=== PATIENT | male | born 1955 | race American Indian/Alaskan Native ===

== ENCOUNTER 2020-05-10 08:41 | Day surgery (SDC) | payer MEDICARE ==
[~2020-05-10 08:41] MED LIST: MIDAZOLAM 2 MG/2 ML INJ IV NR; SODIUM CHLORIDE 0.9% 1000 ML 1,000 ML IV SCH; ceFAZolin/Water 2 GM/20 ML 2 GM/20 ML SYRINGE IV NR; fentaNYL 100 MCG/2 ML INJ IV PRN
--- NOTE | 2020-05-10 09:49 | Anesthesia Consultation ---
Anesthesia Consult and Med Hx Date of service: 05/10/20 - Airway Anesthetic Teeth Evaluation: Edentulous ROM Head & Neck: Adequate Mental/Hyoid Distance: Adequate Mallampati Class: Class III Intubation Access Assessment: Possibly Difficult - Pulmonary Exam CTA: Yes - Cardiac Exam Cardiac Exam: RRR - Pre-Operative Health Status ASA Pre-Surgery Classification: ASA3 Proposed Anesthetic Plan: General - Pulmonary Hx Smoking: Yes Hx Respiratory Symptoms: No - Cardiovascular System Hx Hypertension: Yes Hx Coronary Artery Disease: Yes (took carvedilol this morning) Hx Heart Attack/AMI: Yes (>4yrs ago; normal EF on TTE 03/2019, >4mets exercise tolerance) Hx Percutaneous Transluminal Coronary Angioplasty (PTCA): No Hx Cardia Arrhythmia: No (sinus jocelin on EKG 03/2020) Hx Valvular Heart Disease: No - Central Nervous System Hx Seizures: No (noted in chart but patient denies. No AEDs on med list.) CVA: Yes (x3; residual gait abnormality) - Endocrine Hx Renal Disease: Yes (CKD 5 not yet on HD) Hx Liver Disease: No Hx Insulin Dependent Diabetes: No Hx Non-Insulin Dependent Diabetes: No Hx Thyroid Disease: No - Other Systems Hx Obesity: No - Additional Comments Anesthesia Medical History Comments: No prior anesthetics. Reports stable 4 pillow orthopnea for many years but no signs/symptoms decompensation on exam. Cardiology visit note, TTE, and EKG on chart.
[2020-05-10] MEDS ORDERED: fentaNYL 100 MCG/2 ML INJ IV PRN (09:50)
--- NOTE | 2020-05-10 09:50 | Anesthesia Day of Surgery ---
Anesthesia Day of Surgery - Day of Surgery Patient Examined: Yes Patient H&P Reviewed: Yes Patient is NPO: Yes Beta Blockers: Yes (carvedilol today AM)
[2020-05-10] MEDS ORDERED: rifAMPin 600 MG VIAL ONE (09:57)
[2020-05-10] MEDS ORDERED: SODIUM CHLORIDE 0.45% 500 ML IV ONE (09:57)
[2020-05-10] MEDS ORDERED: HEPARIN 10,000 UNITS/10 ML VIAL ONE (09:57)
[2020-05-10] MEDS ORDERED: SODIUM CHLORIDE P/F VIAL 10 ML 10 ML ONE (09:57)
[2020-05-10] MEDS ORDERED: BUPIVACAINE/PF (0.5%) 5 MG/1 ML 30 ML VIAL INFILTRATI ONE ×3 (09:57→12:30)
[2020-05-10] MEDS ORDERED: LIDOCAINE (1%) 10 MG/1 ML VIAL 20 ML MDV ONE (09:57)
[2020-05-10] MEDS ORDERED: SODIUM CHLORIDE 0.9% 500 ML 500 ML ONE (09:58)
[2020-05-10] MEDS ORDERED: HYDROmorphone 1 MG/1 ML INJ ONE (10:16)
[2020-05-10] MEDS ORDERED: LIDOCAINE MPF (2%) 20 MG/1 ML VIAL 5 ML ONE (10:17)
[2020-05-10] MEDS ORDERED: propofoL 200 MG/20 ML VIAL IV ONE (10:17)
[2020-05-10 10:24] LABS: Hematocrit 37.8 % (35.5-45.6); Hemoglobin 12.6 gm/dl (11.8-15.2); Mean Corpuscular HGB Conc 33 % (32-34); Mean Corpuscular Volume 79 fl (84-94); Platelet Count 190 K/mm3 (140-440); Red Blood Count 4.76 M/mm3 (3.65-5.03); Red Cell Distribution Width 17.1 % (13.2-15.2)
[2020-05-10 11:03] LABS: Calcium 8.9 mg/dL (8.4-10.2)
[2020-05-10] MEDS ORDERED: SODIUM CHLORIDE 0.9% 500 ML IVPB IV ONE ×2 (12:31→12:36)
[2020-05-10] MEDS ORDERED: HEPARIN 10,000 UNITS/10 ML VIAL IV ONE ×2 (12:31→12:35)
[2020-05-10] MEDS ORDERED: rifAMPin 600 MG VIAL IV ONE (12:32)
[2020-05-10] MEDS ORDERED: SODIUM CHLORIDE 0.9% P/F 10 ML VIAL IV ONE (12:34)
[2020-05-10] MEDS ORDERED: ePHEDrine SULFATE 50 MG/1 ML INJ ONE (12:35)
[2020-05-10] MEDS ORDERED: GLYCOPYRROLATE 0.4 MG/2 ML INJ ONE (13:14)
--- NOTE | 2020-05-10 13:18 | Short Stay Summary ---
Short Stay Documentation Date of service: 05/10/20 Narrative H&P: See H&P - History H&P: obtained from office - Allergies and Medications Current Medications: Allergies No Known Allergies Allergy (Unverified 12/05/15 06:12) Home Medications Medication Instructions Recorded Confirmed Last Taken Type Pravastatin [Pravachol] 40 mg PO DAILY #30 tablet 12/09/15 05/10/20 05/09/20 12:00 Rx Nifedipine 90 mg PO DAILY 05/03/20 05/10/20 05/09/20 12:00 History Nitroglycerin 1 dose SL PRN PRN 05/03/20 05/03/20 Unknown History carvediloL [Coreg] 3.2 mg PO BID 05/03/20 05/10/20 05/10/20 05:00 History hydrALAZINE [Apresoline TAB] 100 mg PO TID 05/03/20 05/10/20 05/09/20 12:00 History Active Medications Fentanyl (Sublimaze) 50 mcg IV Q5MIN PRN PRN Reason: Pain , Severe (7-10) Stop: 05/10/20 23:00 Sodium Chloride (Nacl 0.9% 1000 Ml) 1,000 mls @ 42 mls/hr IV DIRECT JESICA Stop: 05/10/20 23:59 Last Admin: 05/10/20 10:50 Dose: 42 mls/hr Documented by: Cefazolin Sodium (Ancef/Sterile Water 2 Gm/20 Ml) 2 gm in 20 mls @ 80 mls/hr IV PREOP NR; Protocol Stop: 05/10/20 20:00 Midazolam HCl (Versed) 2 mg IV PREOP NR Stop: 05/10/20 23:59 Last Admin: 05/10/20 11:10 Dose: 2 mg Documented by: - Brief post op/procedure progress note Date of procedure: 05/10/20 Pre-op diagnosis: Chronic Renal Insufficiency Post-op diagnosis: same Procedure: Creation of Left Brachial Artery to Axillary Vein Arteriovenous Graft With 6 mm Bovine Artegraft Anesthesia: TRINH Surgeon: RINKU ISAAC Estimated blood loss: minimal Pathology: none Condition: stable - Disposition Condition at discharge: Good Disposition: DC-01 TO HOME OR SELFCARE Short Stay Discharge Plan Activity: other (No heavy lifting with left arm for 2 weeks.) Wound: open to air, keep clean and dry, other (Okay to wash the wound with soap and water but do not soak in water for 2 weeks.) Follow up with: RINKU ISAAC MD [Staff Physician] - 14 Days Prescriptions: HYDROcodone/APAP 7.5-325 [[place] 7.5/325] 1 each PO Q6HR PRN #40 tablet PRN Reason: Pain
--- NOTE | 2020-05-10 13:21 | Operative Report ---
Operative Report Operative Report: Date of procedure: 05/10/2020 Pre-operative diagnosis: Chronic Renal Insufficiency Post-operative diagnosis: Same Procedure(s): 1. Creation of Left Brachial Artery to Axillary Vein AV Graft with 6 mm Bovine Graft Artergraft Surgeon: Dylan Lawrence MD In Store Demonstrator: None Anesthesia: General Endotracheal Anesthesia EBL: Minimal Counts: Correct Complications: None Condition: Stable Findings: Successful Creation of Left Arm AV Graft Specimen: None Indication: The patient is a 65-year-old male with a history of chronic renal sufficiency who was not yet on hemodialysis however it is anticipated that he will require hemodialysis within the next several months. He is in need of long-term dialysis access to avoid permacath insertion. He had a vein mapping and is not a candidate for creation of an arteriovenous fistula. He was therefore set up for creation of an arteriovenous graft. He was given the risk, benefits, and alternative procedures and consented to the procedure. Description of Procedure: The patient was brought to the operating room and laid in supine position after general endotracheal anesthesia was achieved the left arm was prepped and draped in normal sterile fashion. A longitudinal incision was made on the medial aspect of the arm just proximal to the antecubital crease and carried down to the brachial artery using sharp dissection. The brachial artery was dissected out circumferentially both proximally and distally and controlled with vessel loops. A second incision was created in longitudinal fashion on the medial aspect of the arm just distal to the axillary crease and carried down to the axillary vein using sharp dissection. Axillary vein was dissected out circumferentially and controlled with a vessel loop. I then used a Tiny-Wick tunneler to tunnel from the brachial artery incision to the axillary vein incision and then put an [] mm bovine through the tunnel. I infused with heparinized saline to ensure that it was not twisted or kinked. I put the brachial artery vessel loops on tension controlling the flow and then created an arteriotomy using an 11 blade and Grimes scissors. I beveled the graft and created an end-to-side anastomosis using 6-0 Prolene running fashion. I clamped the graft just proximal to the anastomosis and then released the vessel loops restoring flow in the brachial artery. I placed quick clot in incision to achieve hemostasis. I cut the proximal end of the graft to the appropriate length and beveled the graft in preparation for a venous anastomosis. I controlled the axillary vein a Satinsky clamp and created a venotomy using an 11 blade and Grimes scissors. I created an end to side anastomosis using a 6-0 Prolene in running fashion. Prior to completing the anastomosis I flushed the graft to ensure there was no thrombus and then completed the anastamosis. I released all clamps allowing flow into the AV graft which had an excellent thrill. I packed the wound with quick clot to achieve hemostasis. I anesthetized both wounds with 0.5% Marcaine and then closed both wounds in 2 layers using 3-0 Vicryl in running fashion in the deep dermal layer and 4-0 Monocryl in running fashion the subcuticular layer. I dressed both wounds with Dermabond. The patient tolerated the procedure well all sponge needle and instrument counts were correct the patient was taken to recovery in stable condition.
[2020-05-10 14:52] VITALS: BP 149/95
--- NOTE | 2020-05-10 16:07 | Post Anesthesia Evaluation ---
- Post Anesthesia Evaluation Patient Participated: Yes Airway Patent: Yes Stable Respiratory Function: Yes Nausea/Vomiting: No Temp > 96.8F: Yes Pain Manageable: Yes Adequeate Hydration: Yes Anesthesia Complications: No
== END 2020-05-10 15:25 | disposition home or self-care (01) ==
LOC: OR 08:41
PROVIDERS: ATTEND Surgery Vascular Surgery
DX: I13.2 Hypertensive heart and chronic kidney disease with heart failure and with stage 5 chronic kidney disease, or end stage renal disease (principal); N18.6 End stage renal disease; I50.9 Heart failure, unspecified; F17.210 Nicotine dependence, cigarettes, uncomplicated; E78.5 Hyperlipidemia, unspecified; I25.2 Old myocardial infarction; I25.10 Atherosclerotic heart disease of native coronary artery without angina pectoris; J44.9 Chronic obstructive pulmonary disease, unspecified; K21.9 Gastro-esophageal reflux disease without esophagitis; Z98.890 Other specified postprocedural states; Z79.899 Other long term (current) drug therapy; Z86.73 Personal history of transient ischemic attack (TIA), and cerebral infarction without residual deficits
CPT/HCPCS: 36415; 36830; 80048; 85027; C1768; J0690; J1170; J1644; J2250; J2704; J3490; J7030; J7040

== ENCOUNTER 2020-05-22 20:24 | Observation (INO) | payer MEDICARE ==
[2020-05-22] MEDS ORDERED: ALUM-MAG HYDROXIDE-SIMETHICONE 200-200-20MG/5ML ORAL LIQD 30 ML PO ONE (20:59)
[2020-05-22] MEDS ORDERED: LIDOCAINE VISCOUS 2% 15 ML ORAL LIQD PO ONE (20:59)
--- NOTE | 2020-05-22 21:04 | Emergency Department Report ---
ED Chest Pain HPI - General Chief Complaint: Chest Pain Stated Complaint: CHEST PAIN Time Seen by Provider: 05/22/20 20:39 Source: patient, EMS Mode of arrival: Stretcher Limitations: No Limitations - History of Present Illness Initial Comments: This is a 65-year-old male presents to the emergency department via EMS from home with a complaint of midsternal chest pain that started about 8 AM this morning and has been going on since. It is currently 8 out of 10 in intensity and the patient describes it as feeling as if he has indigestion. It is nonr adiating. There is some mild shortness of breath. He denies any fever, nausea, vomiting, back pain, lower extremity swelling, diaphoresis. Patient was given 324 mg of aspirin in route. The patient also says that he has been "popping Tums all day." He has a past medical history of hypertension, hyperlipidemia, previous subdural hematoma, chronic kidney disease. The patient had a left upper extremity graft placed about 12 days ago for dialysis, but the patient is not currently undergoing dialysis. Patient also recently was admitted to [facility] for similar chest pain and says that he had a negative stress test during that stay. He follows with [facility]. His hydroponics grower is Dr. Savage. Severity scale (0 -10): 8 - Related Data Home Medications Medication Instructions Recorded Confirmed Last Taken Nifedipine 90 mg PO DAILY 05/03/20 05/22/20 05/09/20 12:00 Nitroglycerin 1 dose SL PRN PRN 05/03/20 05/22/20 Unknown carvediloL [Coreg] 3.2 mg PO BID 05/03/20 05/22/20 05/10/20 05:00 hydrALAZINE [Apresoline TAB] 100 mg PO TID 05/03/20 05/22/20 05/09/20 12:00 Previous Rx's Medication Instructions Recorded Last Taken Type HYDROcodone/APAP 7.5-325 [[place] 1 each PO Q6HR PRN #40 tablet 05/10/20 Unknown Rx 7.5/325] Allergies Allergy/AdvReac Type Severity Reaction Status Date / Time No Known Allergies Allergy Unverified 12/05/15 06:12 Heart Score - HEART Score History: Slightly suspicious EKG: Normal Age: > 65 Risk factors: > 3 risk factors or hx of atherosclerotic disease Troponin: 1-3x normal limit HEART Score: 5 - Critical Actions Critical Actions: 4-6 pts:12-16.6% risk of adverse cardiac event. Should be admitted ED Review of Systems ROS: Stated complaint: CHEST PAIN Other details as noted in HPI Comment: All other systems reviewed and negative Constitutional: denies: chills, fever Eyes: denies: eye pain, vision change ENT: denies: ear pain, throat pain Respiratory: denies: cough, shortness of breath Cardiovascular: chest pain. denies: palpitations Gastrointestinal: denies: abdominal pain, vomiting Genitourinary: denies: dysuria, discharge Musculoskeletal: denies: back pain, arthralgia Skin: denies: rash, lesions Neurological: denies: headache, weakness ED Past Medical Hx - Past Medical History Previous Medical History?: Yes Hx Hypertension: Yes Hx CVA: Yes Hx Heart Attack/AMI: Yes (>4yrs ago; normal EF on TTE 03/2019, >4mets exercise tolerance) Hx Congestive Heart Failure: Yes Hx Diabetes: No Hx Deep Vein Thrombosis: No Hx GERD: Yes Hx Liver Disease: No Hx Renal Disease: Yes (CKD 5 not yet on HD) Hx Sickle Cell Disease: No Hx Arthritis: No Hx Headaches / Migraines: No Hx Seizures: No (noted in chart but patient denies. No AEDs on med list.) Hx Kidney Stones: No Hx Asthma: No Hx COPD: Yes Hx Tuberculosis: No Hx HIV: No - Surgical History Past Surgical History?: Yes Hx Coronary Stent: No Hx Pacemaker: No Hx Internal Defibrillator: No Additional Surgical History: left arm for future dialysis use - Social History Smoking Status: Current Every Day Smoker Substance Use Type: None - Medications Home Medications: Home Medications Medication Instructions Recorded Confirmed Last Taken Type Nifedipine 90 mg PO DAILY 05/03/20 05/22/20 05/09/20 12:00 History Nitroglycerin 1 dose SL PRN PRN 05/03/20 05/22/20 Unknown History carvediloL [Coreg] 3.2 mg PO BID 05/03/20 05/22/20 05/10/20 05:00 History hydrALAZINE [Apresoline TAB] 100 mg PO TID 05/03/20 05/22/20 05/09/20 12:00 History HYDROcodone/APAP 7.5-325 [[place] 1 each PO Q6HR PRN #40 tablet 05/10/20 05/22/20 Unknown Rx 7.5/325] ED Physical Exam - General Limitations: No Limitations - Other Other exam information: GENERAL: The patient is well-developed well-nourished. HENT: Normocephalic. Atraumatic. Patient has moist mucous membranes. EYES: Extraocular motions are intact. NECK: Supple. Trachea is midline. CHEST/LUNGS: Clear to auscultation. There is no respiratory distress noted. Chest pain is not reproducible to palpation of the chest wall. HEART/CARDIOVASCULAR: Regular. There is no tachycardia. There is no murmur. ABDOMEN: Abdomen is soft, nontender. No guarding. Patient has normal bowel sounds. There is no abdominal distention. SKIN: Skin is warm and dry. NEURO: The patient is awake, alert, and oriented. The patient is cooperative. The patient has no focal neurologic deficits. Normal speech. MUSCULOSKELETAL: There is no tenderness or deformity. ED Course Vital Signs 05/22/20 05/22/20 05/22/20 20:40 21:00 21:43 Temperature 98.2 F Pulse Rate 71 82 Respiratory 23 18 17 Rate Blood Pressure 149/73 Blood Pressure 149/73 [Right] O2 Sat by Pulse 98 Oximetry 05/22/20 22:00 Temperature Pulse Rate 77 Respiratory 25 H Rate Blood Pressure 146/98 Blood Pressure [Right] O2 Sat by Pulse 94 Oximetry YOON score - Yoon Score Age > 65: (1) Yes Aspirin use within the Past 7 Days: (1) Yes 3 or more CAD Risk Factors: (1) Yes 2 or more Angina events in past 24 hrs: (1) Yes Known CAD with more than 50% Stenosis: (0) No Elevated Cardiac Markers: (1) Yes ST Deviation Greater than 0.5mm: (0) No YOON Score: 5 ED Medical Decision Making - Lab Data Result diagrams: 05/22/20 21:12 05/22/20 21:12 - EKG Data -: EKG Interpreted by Me EKG shows normal: sinus rhythm, axis, intervals, QRS complexes, ST-T waves Rate: normal - EKG Data When compared to previous EKG there are: previous EKG unavailable Interpretation: normal EKG - Radiology Data Radiology results: image reviewed interpreted by me: Chest x-ray does not show any acute process. There are no pleural effusions, obvious pneumonia and there is no pneumothorax. - Medical Decision Making Patient presents with midsternal chest pain that is been going on since about 8 AM this morning. While patient describes it as a feeling of indigestion, he has had no relief from the Tums he took at home, nor the GI cocktail given here. Patient was then given some morphine. He was also given Zofran after one episode of vomiting. EKG does not have any morphology consistent with ST elevation myocardial infarction. Chest x-ray does not show pneumonia, pleural effusions, pneumothorax, or any other acute process. The patient's labs shows acute on chronic renal deficiency with a GFR of 19. He also has an elevated troponin of 0.096. All the patient supposedly had a negative stress test recently at [facility], he does present with a moderate heart and YOON score and continued chest pain despite multiple treatment modalities. He will be admitted to the hospital for further evaluation and treatment and was accepted for admission by the hospitalist, Dr. Whitfield. Critical Care Time: No Critical care attestation.: If time is entered above; I have spent that time in minutes in the direct care of this critically ill patient, excluding procedure time. ED Disposition Clinical Impression: Acute chest pain, Elevated troponin Acute on chronic kidney failure Qualifiers: Acute renal failure type: unspecified Chronic kidney disease stage: stage 4 (severe) Qualified Code(s): N17.9 - Acute kidney failure, unspecified; N18.4 - Chronic kidney disease, stage 4 (severe) Disposition: OP ADMIT IP TO THIS HOSP Is pt being admited?: Yes Condition: Fair Time of Disposition: 22:29
--- NOTE | 2020-05-22 21:29 | XRay Report ---
CHEST 1 VIEW 05/22/2020 9:02 PM INDICATION / CLINICAL INFORMATION: CP. COMPARISON: None available. FINDINGS: SUPPORT DEVICES: None. HEART / MEDIASTINUM: No significant abnormality. LUNGS / PLEURA: No significant pulmonary or pleural abnormality. No pneumothorax. ADDITIONAL FINDINGS: No significant additional findings. IMPRESSION: No acute cardiopulmonary abnormality. Signer Name: Joe Fry MD Signed: 05/22/2020 9:25 PM Workstation Name: [employer] [id number]
[2020-05-22] MEDS ORDERED: MORPHINE 4 MG/1 ML INJ IV ONE (21:41)
[2020-05-22] MEDS ORDERED: ONDANSETRON 4 MG/2 ML INJ ONE (21:47)
[2020-05-22 21:49] LABS: Basophils % (Auto) 0.4 % (0.0-1.8); Eosinophils # (Auto) 0.2 K/mm3 (0.0-0.4); Eosinophils % (Auto) 1.5 % (0.0-4.3); Hematocrit 35.9 % (35.5-45.6); Hemoglobin 11.6 gm/dl (11.8-15.2); Lymphocytes % (Auto) 10.1 % (13.4-35.0); Mean Corpuscular HGB Conc 32 % (32-34); Mean Corpuscular Volume 82 fl (84-94); Monocytes # (Auto) 0.5 K/mm3 (0.0-0.8); Monocytes % (Auto) 4.9 % (0.0-7.3); Platelet Count 206 K/mm3 (140-440); Red Blood Count 4.36 M/mm3 (3.65-5.03); Red Cell Distribution Width 16.8 % (13.2-15.2)
[2020-05-22] MEDS ORDERED: ONDANSETRON 4 MG/2 ML INJ IV ONE (21:49)
[2020-05-22 21:51] LABS: Calcium 10.7 mg/dL (8.4-10.2)
[2020-05-22 21:55] LABS: Albumin 4.4 g/dL (3.9-5); Calcium 10.8 mg/dL (8.4-10.2)
[2020-05-22 22:01] LABS: INR 1.05 (0.87-1.13)
[2020-05-22 22:18] VITALS: BP 146/98
[2020-05-22] MEDS ORDERED: NITROGLYCERIN 0.4 MG TAB SUBL SL PRN (22:37)
[2020-05-22] MEDS ORDERED: MORPHINE 4 MG/1 ML INJ IV PRN (22:37)
[2020-05-22] MEDS ORDERED: MAGNESIUM HYDROXIDE (MOM) ORAL LIQD UDC PO PRN (22:37)
[2020-05-22] MEDS ORDERED: ACETAMINOPHEN 325 MG TAB PO PRN ×2 (22:37)
[2020-05-22] MEDS ORDERED: ONDANSETRON 4 MG/2 ML INJ IV PRN (22:37)
--- NOTE | 2020-05-22 22:47 | History and Physical Report ---
History of Present Illness Date of examination: 05/22/20 Date of admission: 05/22/2020 Chief complaint: CHEST PAIN History of present illness: 65-year-old male with known history of coronary artery disease, hypertension, CHF and GERD presenting to the emergency room today complaining of midsternal chest pain which started earlier this morning. Chest pain is said to be about 8/10 in severity. It is nonradiating. There is no no relieving or exacerbating factor. Patient had an episode of nausea or vomiting, no fever or chills, denies any headache or dizziness and denies any diaphoresis. Patient has had some aspirin en route. to the hospital. Patient had a left upper extremity graft placement about 12 days ago for possible future dialysis. He also indicates that he was admitted to [facility] for chest pain recently had a negative stress test. Patient states that he follows up with [facility] cardiology. Work-up in the emergency room today reveals a slightly elevated troponin. His BUN and creatinine was also slightly elevated from baseline. Patient is being admitted for evaluation of his chest pain. Past History Past Medical History: CAD, COPD, GERD, heart failure, hypertension, renal fa ilure (chronic) Past Surgical History: Other (left AV graft- for possible future dialysis) Social history: smoking (Current daily smoker) Family history: no significant family history Medications and Allergies Allergies Allergy/AdvReac Type Severity Reaction Status Date / Time No Known Allergies Allergy Unverified 12/05/15 06:12 Home Medications Medication Instructions Recorded Confirmed Last Taken Type Nifedipine 90 mg PO DAILY 05/03/20 05/22/20 05/09/20 12:00 History Nitroglycerin 1 dose SL PRN PRN 05/03/20 05/22/20 Unknown History carvediloL [Coreg] 3.2 mg PO BID 05/03/20 05/22/20 05/10/20 05:00 History hydrALAZINE [Apresoline TAB] 100 mg PO TID 05/03/20 05/22/20 05/09/20 12:00 History HYDROcodone/APAP 7.5-325 [[place] 1 each PO Q6HR PRN #40 tablet 05/10/20 05/22/20 Unknown Rx 7.5/325] Active Meds: Active Medications Acetaminophen (Tylenol) 650 mg PO Q6H PRN PRN Reason: Pain, Mild (1-3) Acetaminophen (Tylenol) 650 mg PO Q4H PRN PRN Reason: Pain MILD(1-3)/Fever >100.5/JUAREZ Aspirin (Ecotrin) 325 mg PO QDAY JESICA Heparin Sodium (Porcine) (Heparin) 5,000 unit SUB-Q Q8HR JESICA Magnesium Hydroxide (Milk Of Magnesia) 30 ml PO Q4H PRN PRN Reason: Constipation Morphine Sulfate (Morphine) 2 mg IV Q5MIN PRN PRN Reason: Chest Pain Nitroglycerin (Nitrostat) 0.4 mg SL Q5M PRN PRN Reason: Chest Pain Ondansetron HCl (Zofran) 4 mg IV Q8H PRN PRN Reason: Nausea And Vomiting Sodium Chloride (Sodium Chloride Flush Syringe 10 Ml) 10 ml IV PRN PRN PRN Reason: LINE FLUSH Sodium Chloride (Sodium Chloride Flush Syringe 10 Ml) 10 ml IV BID JESICA Sodium Chloride (Sodium Chloride Flush Syringe 10 Ml) 10 ml IV PRN PRN PRN Reason: LINE FLUSH Review of Systems Constitutional: no fever, no chills, no sweats Ears, nose, mouth and throat: no nasal congestion, no sore throat Cardiovascular: chest pain, no palpitations Respiratory: no cough, no shortness of breath Gastrointestinal: nausea, vomiting, no abdominal pain, no diarrhea Genitourinary Male: no dysuria, no hematuria, no flank pain Musculoskeletal: no neck pain, no low back pain Integumentary: no rash, no pruritis Neurological: no headaches, no confusion Psychiatric: no anxiety, no depression Exam - Constitutional Vitals: Temp Pulse Resp BP Pulse Ox 98.2 F 77 25 H 146/98 94 05/22/20 20:40 05/22/20 22:00 05/22/20 22:00 05/22/20 22:00 05/22/20 22:00 General appearance: Present: no acute distress, well-nourished - EENT Eyes: Present: PERRL, EOM intact. Absent: scleral icterus ENT: hearing intact, clear oral mucosa, dentition normal - Neck Neck: Present: supple, normal ROM - Respiratory Respiratory effort: normal Respiratory: bilateral: CTA - Cardiovascular Rhythm: regular Heart Sounds: Present: S1 & S2. Absent: gallop, systolic murmur, diastolic murmur, rub - Extremities Extremities: no ischemia, pulses intact, pulses symmetrical, No edema, Full ROM Peripheral Pulses: within normal limits - Abdominal General gastrointestinal: Present: soft, non-tender, non-distended, normal bowel sounds. Absent: mass - Integumentary Integumentary: Present: clear, warm, dry. Absent: rash - Musculoskeletal Musculoskeletal: strength equal bilaterally - Psychiatric Psychiatric: appropriate mood/affect, intact judgment & insight, memory intact, cooperative - Neurologic Neurologic: CNII-XII intact, no focal deficits, moves all extremities HEART Score - HEART Score History: Moderately suspicious EKG: Normal Age: > 65 Risk factors: > 3 risk factors or hx of atherosclerotic disease Troponin: Troponin T 0.096 ng/mL (0.00-0.029) H 05/22/20 21:12 Troponin: 1-3x normal limit HEART Score: 6 - Critical Actions Critical Actions: 4-6 pts:12-16.6% risk of adverse cardiac event. Should be admitted Results - Labs CBC & Chem 7: 05/22/20 21:12 05/22/20 21:12 Labs: Abnormal lab results 05/22/20 05/22/20 05/22/20 Range/Units 21:12 21:12 21:12 Hgb 11.6 L (11.8-15.2) gm/dl MCV 82 L (84-94) fl MCH 27 L (28-32) pg RDW 16.8 H (13.2-15.2) % Lymph % (Auto) 10.1 L (13.4-35.0) % Lymph # (Auto) 1.0 L (1.2-5.4) K/mm3 Seg Neutrophils % 83.1 H (40.0-70.0) % Seg Neutrophils # 8.1 H (1.8-7.7) K/mm3 BUN 52 H 54 H (9-20) mg/dL Creatinine 3.9 H 3.9 H (0.8-1.3) mg/dL Glucose 122 H 120 H (75-100) mg/dL Calcium 10.7 H 10.8 H (8.4-10.2) mg/dL Troponin T 0.096 H (0.00-0.029) ng/mL Assessment and Plan - Patient Problems (1) Acute chest pain Current Visit: Yes Status: Acute Plan to address problem: Patient admitted and placed on telemetry. We will check serial cardiac enzymes. Patient placed on aspirin, sublingual nitroglycerin and IV morphine as needed for chest pain. We will place consult to cardiology for further evaluation and recommendation. (2) Acute on chronic kidney failure Current Visit: Yes Status: Acute Qualifiers: Acute renal failure type: unspecified Chronic kidney disease stage: stage 4 (severe) Qualified Code(s): N17.9 - Acute kidney failure, unspecified; N18.4 - Chronic kidney disease, stage 4 (severe) Plan to address problem: Patient follows up with Dr. Savage the security specialist. Will monitor BUN and creatinine. (3) Elevated troponin Current Visit: Yes Status: Acute Plan to address problem: Possibly secondary to the chronic kidney disease. We will monitor troponin levels. We will await further recommendation from cardiology. (4) Hypertension Current Visit: No Status: Chronic Plan to address problem: We will resume routine antihypertensive medications and monitor vital signs closely. (5) DVT prophylaxis Current Visit: No Status: Acute Plan to address problem: Patient placed on subcutaneous heparin. (6) Full code status Current Visit: No Status: Acute
[2020-05-23] MEDS ORDERED: HEPARIN 5,000 UNIT/1 ML VIAL SUB-Q SCH ×2 (06:00→22:00)
[2020-05-23] MEDS ORDERED: ASPIRIN EC 325 MG TAB PO SCH (10:00)
[2020-05-23 16:38] LABS: Calcium 10.4 mg/dL (8.4-10.2); Chol/HDL Ratio 2.83 %
[2020-05-23 16:44] LABS: Eosinophils # (Auto) 0.1 K/mm3 (0.0-0.4); Eosinophils % (Auto) 0.7 % (0.0-4.3); Monocytes # (Auto) 0.4 K/mm3 (0.0-0.8); Monocytes % (Auto) 3.7 % (0.0-7.3)
--- NOTE | 2020-05-23 17:55 | Consultation ---
History of Present Illness Consult date: 05/23/20 Consult reason: chest pain History of present illness: The patient is a 65-year-old man with end-stage renal disease, coronary artery disease and chronic hypertension. He has a left arm AV fistula, but has not yet started hemodialysis. He presented to the hospital at this time with chest pain. He describes intermittent substernal chest pain, which has not been reliably exertional but caused him to go to [facility] [place] 2 weeks ago. At that time he underwent a thallium stress test which was reported negative. He presents to this hospital at this time with recurrent chest pain. In 2013, a cardiac catheterization at this hospital demonstrated mild to moderate nonobstructive two-vessel disease for which he was recommended for conservative management. Previous left ventricular function assessment has documented normal EF. On this presentation, the ECG is normal sinus rhythm, normal ECG with no ST or T wave changes. Past History Past Medical History: CAD, COPD, GERD, hypertension, renal failure (chronic) Past Surgical History: Other (left AV graft- for possible future dialysis) Social history: smoking (Current daily smoker) Family history: no significant family history Medications and Allergies Allergies Allergy/AdvReac Type Severity Reaction Status Date / Time No Known Allergies Allergy Unverified 12/05/15 06:12 Home Medications Medication Instructions Recorded Confirmed Last Taken Type Nifedipine 90 mg PO DAILY 05/03/20 05/22/20 05/09/20 12:00 History Nitroglycerin 1 dose SL PRN PRN 05/03/20 05/22/20 Unknown History carvediloL [Coreg] 3.2 mg PO BID 05/03/20 05/22/20 05/10/20 05:00 History hydrALAZINE [Apresoline TAB] 100 mg PO TID 05/03/20 05/22/20 05/09/20 12:00 History HYDROcodone/APAP 7.5-325 [[place] 1 each PO Q6HR PRN #40 tablet 05/10/20 05/22/20 Unknown Rx 7.5/325] Active Meds: Active Medications Acetaminophen (Tylenol) 650 mg PO Q4H PRN PRN Reason: Pain MILD(1-3)/Fever >100.5/JUAREZ Aspirin (Ecotrin) 325 mg PO QDAY JESICA Heparin Sodium (Porcine) (Heparin) 5,000 unit SUB-Q Q8HR JESICA Magnesium Hydroxide (Milk Of Magnesia) 30 ml PO Q4H PRN PRN Reason: Constipation Morphine Sulfate (Morphine) 2 mg IV Q5MIN PRN PRN Reason: Chest Pain Nitroglycerin (Nitrostat) 0.4 mg SL Q5M PRN PRN Reason: Chest Pain Ondansetron HCl (Zofran) 4 mg IV Q8H PRN PRN Reason: Nausea And Vomiting Sodium Chloride (Sodium Chloride Flush Syringe 10 Ml) 10 ml IV PRN PRN PRN Reason: LINE FLUSH Sodium Chloride (Sodium Chloride Flush Syringe 10 Ml) 10 ml IV BID [facility] Review of Systems Cardiovascular: chest pain Physical Examination Vital Signs Temp Pulse Resp BP Pulse Ox 98.2 F 71 23 149/73 98 05/22/20 20:40 05/22/20 20:40 05/22/20 20:40 05/22/20 20:40 05/22/20 20:40 General appearance: no acute distress HEENT: Positive: PERRL Neck: Positive: neck supple Cardiac: Positive: Reg Rate and Rhythm Lungs: Positive: clear to auscultation Neuro: Positive: Grossly Intact Abdomen: Positive: Soft Male genitourinary: Positive: deferred Skin: Positive: Clear Extremities: Absent: edema Results 05/22/20 21:12 05/22/20 22:47 Cardiac Enzymes 05/22/20 Range/Units 21:12 AST 12 (5-40) units/L Coagulation 05/22/20 Range/Units 21:12 PT 13.8 (12.2-14.9) Sec. INR 1.05 (0.87-1.13) Lipids 05/22/20 Range/Units 22:47 Triglycerides 81 (2-149) mg/dL Cholesterol 119 (50-199) mg/dL HDL Cholesterol 42 (40-59) mg/dL Cholesterol/HDL Ratio 2.83 % CBC 05/22/20 05/22/20 Range/Units 21:12 22:47 WBC 9.7 (4.5-11.0) K/mm3 RBC 4.36 (3.65-5.03) M/mm3 Hgb 11.6 L (11.8-15.2) gm/dl Hct 35.9 (35.5-45.6) % Plt Count 206 (140-440) K/mm3 Lymph # (Auto) 1.0 L (1.2-5.4) K/mm3 [place] # (Auto) 0.5 0.4 (0.0-0.8) K/mm3 Eos # (Auto) 0.2 0.1 (0.0-0.4) K/mm3 Baso # (Auto) 0.0 0.0 (0.0-0.1) K/mm3 Comprehensive Metabolic Panel 05/22/20 05/22/20 05/22/20 Range/Units 21:12 21:12 22:47 Sodium 139 141 139 (137-145) mmol/L Potassium 4.6 4.8 4.6 (3.6-5.0) mmol/L Chloride 102.9 104.7 103.3 (98-107) mmol/L Carbon Dioxide 23 22 24 (22-30) mmol/L BUN 52 H 54 H 54 H (9-20) mg/dL Creatinine 3.9 H 3.9 H (0.8-1.3) mg/dL Glucose 122 H 120 H 123 H (75-100) mg/dL Calcium 10.7 H 10.8 H 10.4 H (8.4-10.2) mg/dL AST 12 (5-40) units/L ALT 9 (7-56) units/L Alkaline Phosphatase 82 (35-129) units/L Total Protein 7.3 (6.3-8.2) g/dL Albumin 4.4 (3.9-5) g/dL EKG interpretations - Telemetry EKG Rhythm: Sinus Rhythm Assessment and Plan - Patient Problems (1) Chest pain Current Visit: Yes Status: Acute Plan to address problem: The patient has a history of nonobstructive coronary artery disease on cardiac catheterization 5 years ago, and complains of chest pain despite a recent negative thallium stress test done at [facility] [place]. I have emmanuelle mmended that he undergoes diagnostic cardiac catheterization for further assessment of his coronary artery disease, to ascertain if progressive disease is responsible for his current angina. The patient refuses further evaluation, instead wants to go home on medical therapy. A family member is at his bedside, and have discussed in detail the risks and benefits of cardiac catheterization in this setting. He understands the risks of recurrent angina, myocardial infarction and cardiac decompensation.
[2020-05-23] MEDS ORDERED: MORPHINE 2 MG/1 ML INJ IV PRN (18:03)
[2020-05-23] MEDS ORDERED: NITROGLYCERIN 0.4 MG TAB SUBL SL PRN (18:05)
--- NOTE | 2020-05-23 18:21 | Discharge Summary ---
Providers - Providers Date of Admission: 05/22/20 22:30 Date of discharge: 05/23/20 Attending physician: SHAGGY MONAE MD 05/22/20 Consult to Cardiac Rehabilitation [CONS] Routine Reason For Exam: Phase I 05/22/20 22:37 Consult to Cardiology [CONS] Routine Consulting Provider: ENRIQUE FRIED Reason For Exam: CHEST PAIN 05/22/20 22:39 Consult to Dietitian/Nutrition [CONS] Routine Physician Instructions: Reason For Exam: Reason for Consult: Diet education 05/22/20 22:42 Consult to Physician [CONS] Routine Comment: Consulting Provider: TIFFANIE JAMES Physician Instructions: Reason For Exam: ACUTE ON CHRONIC RENALMFAILURE [facility] Reason for admission: Chest pain/non-ST elevation [place] Condition: Serious Pertinent studies: Chest x-ray; no acute abnormality Hospital course: 65-year-old male patient with significant coronary artery disease and multiple risk factors was admitted through emergency room with chest pain, Evaluated by cardiology, patient's medications optimized and recommended left heart catheterization, however patient refused and wanted to leave AGAINST MEDICAL ADVICE, respiratory care instructor and other caregivers have extensively counseled the patient the importance of this diagnostic heart cath. However patient refused to have the procedure and wanted to leave AGAINST MEDICAL ADVICE. Risks and consequences and side effects and complications of recurrent angina/chest pain were explained to the patient He verbalized understanding, signed the necessary papers and left AMA Discharge diagnosis; --Angina/chest pain --Non-ST elevation/positive troponins[refused work-up left AMA] --acute on chronic kidney disease[left AMA before evaluation by nephrology] --Hypertension --Ongoing tobacco use Patient left AMA Disposition: DC-07 LEFT AGAINST MED ADVICE Time spent for discharge: 32 min Core Measure Documentation - Palliative Care Palliative Care/ Comfort Measures: Not Applicable - Core Measures Any of the following diagnoses?: none Exam - Constitutional Vitals: Temp Pulse Resp BP Pulse Ox 98.2 F 77 16 146/98 94 05/22/20 20:40 05/22/20 22:00 05/22/20 22:13 05/22/20 22:00 05/22/20 22:00 General appearance: Present: no acute distress, well-nourished - EENT Eyes: Present: PERRL, EOM intact - Neck Neck: Present: supple, normal ROM - Respiratory Respiratory effort: normal Respiratory: bilateral: diminished, negative: rales, rhonchi, wheezing - Cardiovascular Rhythm: regular Heart Sounds: Present: S1 & S2 - Extremities Extremities: no ischemia, No edema - Abdominal General gastrointestinal: Present: soft, non-tender, non-distended, normal bowel sounds - Integumentary Integumentary: Present: clear, warm - Musculoskeletal Musculoskeletal: strength equal bilaterally - Psychiatric Psychiatric: appropriate mood/affect, cooperative - Neurologic Neurologic: moves all extremities Plan Activity: advance as tolerated Diet: renal, other (cardiac diet) Special Instructions: smoking cessation Additional Instructions: If you have worsening symptoms contact MD or go to emergency room. Risks and consequences of leaving AGAINST MEDICAL ADVICE explained to the patient,Patient verbalized understanding [facility] [Primary Care Provider] - 7 Days BARBARA SEBASTIAN MD [Staff Physician] - 3 Days Forms: AMA Form Prescriptions: Nitroglycerin 1 dose SL PRN PRN #14 PRN Reason: Chest Pain
[2020-05-23] MEDS ORDERED: hydrALAZINE 100 MG TAB PO SCH (20:00)
[2020-05-23] MEDS ORDERED: carvediloL 3.125 MG TAB PO SCH (22:00)
[2020-05-24] MEDS ORDERED: FAMOTIDINE 20 MG TAB PO SCH (10:00)
[2020-05-24] MEDS ORDERED: NIFEdipine XL 90 MG TAB PO SCH (10:00)
[2020-05-24 17:27] LABS: Red Blood Count 4.23 M/mm3 (3.65-5.03)
[2020-05-24 17:28] LABS: Hematocrit 34.1 % (35.5-45.6); Hemoglobin 11.1 gm/dl (11.8-15.2); Mean Corpuscular HGB Conc 33 % (32-34); Mean Corpuscular Volume 81 fl (84-94); Red Cell Distribution Width 16.5 % (13.2-15.2)
[2020-05-24 17:29] LABS: Basophils % (Auto) 0.2 % (0.0-1.8); Lymphocytes % (Auto) 8.4 % (13.4-35.0); Platelet Count 194 K/mm3 (140-440)
[2020-05-31 13:36] LABS: Creatine Kinase MB 48.4 ng/mL (0.0-4.0)
== END 2020-05-23 18:39 | disposition left against medical advice (07) ==
LOC: ED 20:24 → 4A 22:30
PROVIDERS: ADMIT Internal Medicine Geriatric Medicine; ATTEND Internal Medicine Geriatric Medicine
DX: I13.0 Hypertensive heart and chronic kidney disease with heart failure and stage 1 through stage 4 chronic kidney disease, or unspecified chronic kidney disease (principal); I50.9 Heart failure, unspecified; N18.4 Chronic kidney disease, stage 4 (severe); N17.9 Acute kidney failure, unspecified; R77.8 Other specified abnormalities of plasma proteins; R07.89 Other chest pain; R74.8 Abnormal levels of other serum enzymes; I25.10 Atherosclerotic heart disease of native coronary artery without angina pectoris; K21.9 Gastro-esophageal reflux disease without esophagitis; J44.9 Chronic obstructive pulmonary disease, unspecified; F17.200 Nicotine dependence, unspecified, uncomplicated; Z98.890 Other specified postprocedural states; Z79.82 Long term (current) use of aspirin; Z86.73 Personal history of transient ischemic attack (TIA), and cerebral infarction without residual deficits
CPT/HCPCS: 36415; 71045; 80048; 80053; 80061; 84484; 85025; 85610; 93005; 96374; 96375; 99285; G0378; J2270; J2405; 82550; 82553